=== PATIENT | male | born 1990 | race Caucasian/White ===

== ENCOUNTER 2016-09-10 11:25 | Emergency (ER) | payer BC ==
[~2016-09-10] VITALS: Wt 89.0 kg
[~2016-09-10 11:25] MED LIST: CITA20TA11 PO; DEXT5TAB17 PO; GABA300C16 PO; GUAN2TAB PO; LAMO25TB2 PO; LORA2VIA3; METH500T PO; TAPE50TA5 PO
[2016-09-10] MEDS ORDERED: KETOROLAC 30 MG INJ IM STA (11:59)
[2016-09-10] MEDS ORDERED: NAPR-260 PO (12:16)
[2016-09-10] MEDS ORDERED: ACET500C5 PO (12:16)
[2016-09-10 12:27] VITALS: BP 118/60; PULSE 74; RESP 20; TEMP 98
--- NOTE | 2016-09-10 12:29 | ERD ---
ER Documentation Chief Complaint Date/Time DATE: 09/10/16 TIME: 12:20 Chief Complaint right knee pain from a fall today. HPI This is a 25-year-old male who presents to the emergency department today complained of some right knee pain after slipping and falling and hitting his knee while walking in the rain. Patient states he really has a history of right knee problems. He states that he goes to physical therapy and has patellofemoral syndrome. He states that he usually takes Mobic for pain. Denies any fevers or chills. ROS All systems reviewed and are negative except as per history of present illness. Medications Home Meds Active Scripts Acetaminophen* (Tylophen*) 500 Mg Capsule, 1 CAP PO Q6H Y for PAIN AND OR ELEVATED TEMP, #30 CAP Prov:PILAR PARKS PA-C 09/10/16 Naproxen* (Naprosyn*) 500 Mg Tablet, 500 MG PO BID Y for PAIN AND/OR INFLAMMATION, #30 TAB Prov:PILAR PARKS PA-C 09/10/16 Reported Medications Lorazepam* (Ativan* IV) 2 Mg/Ml Vial, 1 MG DAILY, VIAL 02/04/14 Amphet Rfo-Kefzau-P-Amphet (Adderall) 5 Mg Tablet, 5 MG PO Y for AGITATION 02/04/14 Citalopram Hydrobromide* (Celexa*) 20 Mg Tablet, 20 MG PO DAILY, TAB 02/04/14 Guanfacine Hcl* (Tenex*) 2 Mg Tablet, 2 MG PO BID, TAB 02/04/14 Gabapentin* (Gabapentin*) 300 Mg Capsule, 300 MG PO TID, CAP 02/04/14 Tapentadol Hcl (Nucynta) 50 Mg Tablet, 60 MG PO DAILY 02/04/14 Lamotrigine* (Lamictal* CHEW) 25 Mg Tab.disper, 25 MG PO BID, TAB 02/04/14 Methocarbamol* (Robaxin*) 500 Mg Tab, 500 MG PO BID, TAB 02/04/14 Allergies Allergies: Coded Allergies: No Known Allergy (Unverified , 09/10/16) PMhx/Soc History of Surgery: Yes (L4-5 fusion 02/04/14) Anesthesia Reaction: Yes (HIGH TOLERANCE TO ANESTHESIA) Hx Neurological Disorder: No Hx Respiratory Disorders: No Hx Cardiac Disorders: No Hx Psychiatric Problems: Yes (OCD) Hx Miscellaneous Medical Probl: Yes (patellafemoral syndrome) Hx Alcohol Use: Yes (OCCASIONAL) Hx Substance Use: No Hx Tobacco Use: No Smoking Status: Never smoker Physical Exam Vitals Vital Signs Date Time Temp Pulse Resp B/P Pulse Ox O2 Delivery O2 Flow Rate FiO2 09/10/16 11:31 98.5 84 20 123/62 98 Physical Exam Const: No acute distress Head: Atraumatic Eyes: Normal Conjunctiva ENT: Normal External Ears, Nose and Mouth. Neck: Full range of motion..~ No meningismus. Resp: Clear to auscultation bilaterally Cardio: Regular rate and rhythm, no murmurs Abd: Soft, non tender, non distended. Normal bowel sounds Skin: No petechiae or rashes MSk: Right knee with no obvious deformity. No effusion. No ecchymosis. Tenderness to palpation anterolateral aspect of knee. Full active range of motion with no increase in pain. Pulses 2+. Distal neurovascularly intact. Neur: Awake and alert Psych: Normal Mood and Affect Results 24 hrs Current Medications Medications (Trade) Dose Ordered Sig/Maximilian Route PRN Reason Start Time Stop Time Status Last Admin Dose Admin Ketorolac Tromethamine (Toradol) 30 mg ONCE STAT IM 09/10/16 11:59 09/10/16 12:01 DC 09/10/16 12:16 Procedures/MDM This is a 25-year-old male who presented to the emergency department today complaining of right knee pain after slipping and falling in the rain and hitting his right knee. Patient has full active range of motion of his knee and he was able to ambulate and weight-bear. I did offer to obtain images for the patient given his previous history of knee problems however he has declined at this time. He does want something for pain. Patient was requesting a Toradol injection as he preferred that over narcotics. I was happy to give the patient a Toradol injection here for his pain. Patient again had full active range of motion and therefore I have low suspicion for acute fracture dislocation however I have explained to the patient that I would be unable to say for certain without doing images and patient again declined. Vision does orally take Mobic and go to physical therapy for patellofemoral syndrome and states that he does not have Naprosyn or Tylenol at home and that would be covered by his insurance. I will give the patient a prescription for both Naprosyn and Tylenol. Again patient declined any narcotic pain medication. Patient was instructed to follow back up with his primary care physician or orthopedic coder and continue his physical therapy. At this time the patient is stable for discharge and outpatient management. Patient should follow up with their PCP in the next 1-2 days. They may return to the emergency department sooner for any persistent or worsening of symptoms. Patient understood and agreed with the plan. Departure Diagnosis: Primary Impression: Knee injury Encounter type: initial encounter Laterality: right Qualified Code: S89.91XA - Knee injury, right, initial encounter Condition: Fair Patient Instructions: The Kneecap (Patella) and Knee Joint, Rehabilitation for Kneecap (Patella) Problems Referrals: PALMIRA LAMBERT (PCP) Additional Instructions: Call your primary care doctor TOMORROW for an appointment during the next 1-2 days.See the doctor sooner or return here if your condition worsens before your appointment time. Take Naprosyn or Tylenol or Motrin for pain. Take your usual other pain medications like Mobic Apply ice to painful area Follow up with your orthopedic and physical therapist PILAR PARKS PA-C Sep 10, 2016 12:29
== END 2016-09-10 12:29 | disposition home or self-care (01) ==
LOC: FTE 11:25
DX: S89.91XA Unspecified injury of right lower leg, initial encounter (principal); W01.198A Fall on same level from slipping, tripping and stumbling with subsequent striking against other object, initial encounter; Y92.9 Unspecified place or not applicable
CPT/HCPCS: 96372; J1885; Z7502

== ENCOUNTER 2018-06-12 15:36 | Emergency (ER) | END 2018-06-12 18:58 | disposition home or self-care (01) ==